=== PATIENT | female | born 1970 | race Caucasian/White ===

== ENCOUNTER → 2021-10-24 | Outpatient (CLI) | payer BC | LOC: RAD 09:08 | DX: M79.644 Pain in right finger(s) (principal) ==

== ENCOUNTER → 2023-08-19 | Outpatient (CLI) | payer BC ==
[2023-08-19 07:52] LABS: URINE WBC 0 /hpf (0-3)
[2023-08-19 08:15] LABS: BASO # 0.02 K/mm3 (0.02-0.10); EOS # 0.09 K/mm3 (0.04-0.40); EOS % 1.9 % (1.0-5.0); HEMATOCRIT 41.2 % (37.0-47.0); HEMOGLOBIN 13.8 g/dL (12.5-16.0); LYMPH# 2.12 K/mm3 (1.50-4.00); MEAN CELL VOLUME 91 fl (78-100); MEAN CORPUSCULAR HEMOGLOBIN 30 pg (27-31); MEAN CORPUSCULAR HGB CONC 34 g/dL (33-37); MONO # 0.43 K/mm3 (0.20-0.80); NEU # 2.17 K/mm3 (1.40-6.50); PLATELET COUNT 291 K/mm3 (130-400); RED BLOOD COUNT 4.54 M/mm3 (4.10-5.30); RED CELL DISTRIBUTION WIDTH 12.3 % (11.5-14.5); WHITE BLOOD COUNT 4.8 K/mm3 (4.8-10.8)
[2023-08-19 08:17] LABS: ALBUMIN 4.3 g/dL (3.5-5.0); SODIUM 141 mmol/L (136-145)
[2023-08-19 08:18] LABS: CALCIUM 9.7 mg/dL (8.3-10.5)
[2023-08-19 08:20] LABS: GLUCOSE 94 mg/dL (65-105)
[2023-08-19 08:23] LABS: CARBON DIOXIDE 25 mmol/L (22-29); TOTAL BILIRUBIN 0.5 mg/dL (0.2-1.2); TOTAL PROTEIN 7.1 g/dL (6.4-8.3)
[2023-08-19 08:25] LABS: AST-SGOT 24 U/L (5-34)
[2023-08-19 08:26] LABS: ALT/SGPT 16 U/L (0-55); MAGNESIUM 1.64 mg/dL (1.60-2.60)
[2023-08-19 08:27] LABS: LIPASE 8 U/L (8-78)
[2023-08-19 08:51] LABS: URINE APPEARANCE CLEAR (CLEAR); URINE COLOR YELLOW (YELLOW)
[2023-08-19 08:52] LABS: URINE BILIRUBIN NEGATIVE (NEGATIVE); URINE BLOOD NEGATIVE (NEGATIVE); URINE GLUCOSE NEGATIVE (NEGATIVE); URINE KETONE NEGATIVE (NEGATIVE); URINE LEUKOCYTE ESTERASE NEGATIVE (NEGATIVE); URINE NITRATE NEGATIVE (NEGATIVE); URINE PROTEIN(semi-quant) NEGATIVE (NEGATIVE)
== END ==
LOC: LAB 07:46
PROVIDERS: Internal Medicine
DX: K90.9 Intestinal malabsorption, unspecified (principal); D64.9 Anemia, unspecified; R63.5 Abnormal weight gain; R10.84 Generalized abdominal pain; R20.2 Paresthesia of skin

== ENCOUNTER → 2023-11-25 | Day surgery (SDC) | payer BC ==
[~2023-11-25] MED LIST: Lidocaine PF 2% (20 MG/ML) 2 ML VIAL ONE
== END | disposition home or self-care (01) ==
LOC: MSO 09-16 14:06
DX: Z12.11 Encounter for screening for malignant neoplasm of colon (principal); Z80.0 Family history of malignant neoplasm of digestive organs
CPT/HCPCS: 00812; J2704; J7120

== ENCOUNTER → 2024-08-07 | Outpatient (CLI) | payer BC | LOC: RAD 09:05 | DX: M25.561 Pain in right knee (principal); R53.1 Weakness ==